=== PATIENT | male | born 1985 | race Caucasian/White ===

== ENCOUNTER 2018-05-03 21:10 | Outpatient (CLI) | payer MEDICAID | END 2018-05-03 21:11 | disposition critical access hospital (66) | LOC: EMS 21:10 | PROVIDERS: ATTEND Surgery | DX: R45.851 Suicidal ideations (principal) | CPT/HCPCS: A0425; A0429; A0999 ==

== ENCOUNTER 2018-05-03 21:34 | Emergency (ER) | payer MEDICAID ==
--- NOTE | 2018-05-03 21:44 | ED Physician Documentation ---
PD HPI MHE - Stated complaint Stated Complaint: SI - History obtained from History obtained from: Patient, EMS, Police - History of Present Illness Contributing factors: Family Recently seen: Not recently seen - Additional information Additional information: BIBA and police. patient says he recently relocated from [place], is staying in a trailer on his brothers property. Patient says that tonight his brother made several statements that patient found objectionable and offensive (as an example, he says his brother remarked that all mcdaniel people are child molesters). Patient says he became increasingly upset with his brother and told his brother he (patient) wanted to end their contact and relationship and that he wanted to leave. the brother called 911. police and EMS found pills on floor near patient with empty pill bottle (label is for lithium). patient says he keeps all of his pills in one rx bottle, and he spilled it while preparing to leave brothers property when police arrived. patient strongly denies SI/HI/VH/AH. Review of Systems Cardiac: reports: Reviewed and negative Respiratory: reports: Reviewed and negative GI: reports: Reviewed and negative Psychiatric: denies: Depressed, Suicidal, Homicidal, Hallucinations, Delusions, Anxiety, Insomnia PD PAST MEDICAL HISTORY - Past Medical History Past Medical History: Yes Other Past Medical History: HIV, depression/bipolar - Present Medications Home Medications: Ambulatory Orders Medication Instructions Recorded Confirmed Darunavir/Cobicistat [Prezcobix 1 each PO DAILY 05/03/18 05/03/18 800 mg-150 mg Tablet] Emtricitabine/Tenofov Alafenam 1 each PO DAILY 05/03/18 05/03/18 [Descovy 200-25 mg Tablet] [place] Carbonate 1,200 mg PO DAILY #120 capsule 05/03/18 [place] Carbonate 1,200 mg PO QPM 05/03/18 05/03/18 QUEtiapine [SEROquel] 25 mg PO QPM 05/03/18 05/03/18 - Allergies Allergies/Adverse Reactions: Allergies Allergy/AdvReac Type Severity Reaction Status Date / Time Penicillins Allergy Anaphylaxis Verified 05/03/18 22:12 PD ED PE NORMAL - Vitals Vital signs reviewed: Yes - General General: Alert and oriented X 3, No acute distress, Well developed/nourished - HEENT HEENT: Moist mucous membranes - Cardiac Cardiac: RRR, No murmur - Respiratory Respiratory: No respiratory distress, Clear bilaterally - Abdomen Abdomen: Soft, Non tender - Derm Derm: Normal color, Warm and dry - Neuro Neuro: Alert and oriented X 3 Eye Opening: Spontaneous Motor: Obeys Commands Verbal: Oriented GCS Score: 15 - Psych Psych: Normal mood, Normal affect Results - Vitals Vitals: Oxygen O2 Source Room air PD MEDICAL DECISION MAKING - ED course Complexity details: reviewed results, re-evaluated patient, considered differential, d/w patient ED course: patient is AAOx3, articulate and cooperative. there is inadequate information to indicate patient can or should be held against his will in ED. He strongly denies suicidal thoughts or intent. He says he can stay with a friend in [place] until the morning when his brother will be at work so as to avoid further confrontation. I offered SW evaluation, but, again, patient strongly denies any suicidal thoughts and expresses strong desire to be discharged; be [facility]. Departure - Departure Disposition: 01 Home, Self Care Clinical Impression: Bipolar disorder Condition: Good Instructions: ED Manic Depression Follow-Up: [facility] [Provider Group] [facility] [Provider Group] Prescriptions: [place] Carbonate 1,200 mg PO DAILY #120 capsule Discharge Date/Time: 05/03/18 23:40
[2018-05-03 21:53] VITALS: BP 145/87
== END 2018-05-03 23:40 | disposition home or self-care (01) ==
LOC: ED 21:34
DX: F31.9 Bipolar disorder, unspecified (principal); B20 Human immunodeficiency virus [HIV] disease
CPT/HCPCS: 99283